=== PATIENT | female | born 1995 | race Caucasian/White ===

== ENCOUNTER 2020-12-15 17:35 | Outpatient (CLI) | payer MEDICAID ==
[~2020-12-15] VITALS: Ht 167.6 cm; Wt 108.1 kg
[2020-12-15 17:48] VITALS: BP 131/76
[2020-12-15] MEDS ORDERED: ONDANSETRON 2MG/ML, 2ML ONE (18:15)
[2020-12-15] MEDS ORDERED: LACTATED RINGERS 1,000 ML IVBOLUS ONE (18:30)
[2020-12-15] MEDS ORDERED: LACTATED RINGERS 1,000 ML IV SCH (18:30)
[2020-12-15] MEDS ORDERED: ONDANSETRON 2MG/ML, 2ML IVPush SCH (21:00)
== END 2020-12-15 20:08 | disposition home or self-care (01) ==
LOC: LDOP 17:35
PROVIDERS: ATTEND Obstetrics & Gynecology
DX: O26.893 Other specified pregnancy related conditions, third trimester (principal); R10.9 Unspecified abdominal pain; O62.9 Abnormality of forces of labor, unspecified; E86.0 Dehydration; Z3A.37 37 weeks gestation of pregnancy
CPT/HCPCS: 59025; 96361; 96374; J2405; J7120; 96360

== ENCOUNTER 2020-12-21 14:54 | Outpatient (CLI) | payer MEDICAID | END 2020-12-21 23:59 | disposition home or self-care (01) | LOC: STAR 14:54 | PROVIDERS: ATTEND Obstetrics & Gynecology | DX: Z20.822 Contact with and (suspected) exposure to COVID-19 (principal) | CPT/HCPCS: U0003 ==

== ENCOUNTER 2020-12-25 05:16 | Inpatient (IN) | payer MEDICAID ==
[~2020-12-25] VITALS: Ht 167.6 cm; Wt 110.0 kg
[2020-12-25] MEDS ORDERED: SODIUM CITRATE/CITRIC ACID 30 ML UDC PO ONE (05:30)
[2020-12-25] MEDS ORDERED: LACTATED RINGERS 1,000 ML IVBOLUS ONE (05:30)
[2020-12-25] MEDS ORDERED: METOCLOPRAMIDE 5 MG/ML, 2ML IV ONE (05:30)
[2020-12-25] MEDS ORDERED: ONDANSETRON 2MG/ML, 2ML IVPush ONE (05:30)
[2020-12-25] MEDS ORDERED: CEFAZOLIN PMX 1GM/50ML 50 ML IVPB ONE (05:30)
[2020-12-25] MEDS ORDERED: CALCIUM CARBONATE 500 MG TAB.CHEW PO PRN (05:30)
[2020-12-25 05:39] LABS: BASOPHILS % (AUTO) 1 % (0-1); EOSINOPHILS % (AUTO) 0 % (1-7); LYMPHOCYTES % (AUTO) 20 % (22-44); MEAN CORPUSCULAR HEMOGLOBIN 32.3 pg (27.0-34.8); MEAN CORPUSCULAR HGB CONC 34.8 g/dL (32.4-35.8); MEAN PLATELET VOLUME 8.1 fL (7.4-10.4); MONOCYTES % (AUTO) 7 % (2-9); NEUTROPHILS % (AUTO) 71 % (42-75); PLATELET COUNT 324 x10^3/uL (130-400); RED BLOOD COUNT 4.37 x10^6/uL (3.82-5.3); RED CELL DISTRIBUTION WIDTH 13.3 % (9.6-15.2)
[2020-12-25 05:42] LABS: MD NO
[2020-12-25] MEDS ORDERED: SODIUM CITRATE/CITRIC ACID 15 ML UDC ONE (05:55)
[2020-12-25] MEDS ORDERED: NEWBORN KIT ONE (05:55)
[2020-12-25] MEDS ORDERED: OXYTOCIN 30U/ 0.9% NaCL 500ML 500 ML ONE (05:55)
[2020-12-25] MEDS: LACTATED RINGERS 1,000 ML IV SCH ×7 (06:45→21:30)
[2020-12-25] MEDS ORDERED: KETOROLAC 30 MG/1 ML ONE (07:27)
[2020-12-25] MEDS ORDERED: CEFAZOLIN 1,000 MG ONE (07:27)
[2020-12-25] MEDS ORDERED: HYDROmorphone 2 MG/ML, 1ML ONE (07:27)
[2020-12-25] MEDS ORDERED: ONDANSETRON 2MG/ML, 2ML ONE (07:27)
[2020-12-25] MEDS ORDERED: FENTANYL PF 100 MCG/2ML ONE (07:27)
[2020-12-25] MEDS ORDERED: OXYTOCIN 10 UNITS/ML, 1ML ONE (07:27)
[2020-12-25] MEDS ORDERED: EPHEDRINE 50 MG/ML, 1ML ONE (07:47)
[2020-12-25] MEDS ORDERED: ONDANSETRON 2MG/ML, 2ML IV PRN (09:00)
[2020-12-25] MEDS ORDERED: MISOPROSTOL 200 MCG TABLET PR PRN (09:00)
[2020-12-25] MEDS ORDERED: MORPHINE SULFATE 4 MG/ML, 1ML IVPush PRN (09:00)
[2020-12-25] MEDS: PRENATAL VIT/IRON/FA 1 EACH TABLET PO SCH (09:00)
[2020-12-25] MEDS ORDERED: ACETAMINOPHEN 325 MG TABLET PO PRN (09:00)
[2020-12-25] MEDS: OXYTOCIN 30U/ 0.9% NaCL 500ML 500 ML IV SCH ×2 (09:31→19:00)
[2020-12-25 10:40] VITALS: BP 124/72
[2020-12-25] MEDS: OXYcodone IR 5MG TABLET PO PRN ×2 (13:38→21:55)
[2020-12-25] MEDS: SIMETHICONE 80 MG CHEW TAB PO PRN ×2 (13:38→21:54)
[2020-12-25] MEDS: KETOROLAC 30 MG/1 ML IV SCH ×2 (14:34→20:21)
[2020-12-25 16:00] VITALS: BP 105/66
[2020-12-25 19:57] VITALS: BP 115/71
[2020-12-25 20:12] LABS: BASOPHILS % (AUTO) 0 % (0-1); EOSINOPHILS % (AUTO) 0 % (1-7); LYMPHOCYTES % (AUTO) 11 % (22-44); MEAN CORPUSCULAR HEMOGLOBIN 31.9 pg (27.0-34.8); MEAN PLATELET VOLUME 8.4 fL (7.4-10.4); MONOCYTES % (AUTO) 6 % (2-9); NEUTROPHILS % (AUTO) 84 % (42-75); PLATELET COUNT 252 x10^3/uL (130-400); RED BLOOD COUNT 3.82 x10^6/uL (3.82-5.3); RED CELL DISTRIBUTION WIDTH 13.4 % (9.6-15.2)
[2020-12-25 20:14] LABS: MD NO
[2020-12-25] MEDS: DOCUSATE 100 MG CAPSULE PO PRN (21:55)
[2020-12-26] VITALS: BP 119/74
[2020-12-26] MEDS: LACTATED RINGERS 1,000 ML IV SCH ×3 (01:00→05:30)
[2020-12-26] MEDS: KETOROLAC 30 MG/1 ML IV SCH ×4 (02:18→20:48)
[2020-12-26] MEDS: OXYTOCIN 30U/ 0.9% NaCL 500ML 500 ML IV SCH (05:00)
[2020-12-26 07:45] VITALS: BP 106/69
[2020-12-26] MEDS: SIMETHICONE 80 MG CHEW TAB PO PRN (08:54)
[2020-12-26] MEDS: PRENATAL VIT/IRON/FA 1 EACH TABLET PO SCH (08:54)
[2020-12-26] MEDS: DOCUSATE 100 MG CAPSULE PO PRN (08:54)
[2020-12-26] MEDS ORDERED: MEASLES,MUMPS&RUBELLA VACC/PF 0.5 ML SQ-VACC ONE (19:30)
[2020-12-26] MEDS ORDERED: DIPH,PERTUSS(ACELL),TET VAC/PF NC IM-VACC ONE (19:30)
[2020-12-26 19:31] VITALS: BP 113/73
[2020-12-27] MEDS: OXYcodone/APAP 5/325MG TABLET PO PRN ×4 (01:04→21:31)
[2020-12-27] MEDS: KETOROLAC 30 MG/1 ML IV SCH (02:30)
[2020-12-27] MEDS: IBUPROFEN 600 MG TABLET PO PRN ×3 (05:15→18:24)
[2020-12-27] MEDS: PRENATAL VIT/IRON/FA 1 EACH TABLET PO SCH (09:00)
[2020-12-27 10:00] VITALS: BP 111/75
[2020-12-27] MEDS: SIMETHICONE 80 MG CHEW TAB PO PRN ×2 (11:01→18:24)
[2020-12-27] MEDS ORDERED: IBUPROFEN 600 MG TABLET PO PRN (16:00)
[2020-12-27 19:37] VITALS: BP_SYST 116; BP_SYST 119; BP_DIAS 76; BP_DIAS 79
[2020-12-27] MEDS: DOCUSATE 100 MG CAPSULE PO PRN (21:30)
[2020-12-28] MEDS: IBUPROFEN 600 MG TABLET PO PRN ×3 (01:36→14:01)
[2020-12-28] MEDS: OXYcodone/APAP 5/325MG TABLET PO PRN ×3 (01:37→12:41)
[2020-12-28 06:55] VITALS: BP 116/76
[2020-12-28] MEDS: SIMETHICONE 80 MG CHEW TAB PO PRN (07:51)
[2020-12-28] MEDS: DOCUSATE 100 MG CAPSULE PO PRN (07:51)
[2020-12-28] MEDS: PRENATAL VIT/IRON/FA 1 EACH TABLET PO SCH (07:54)
[2020-12-28] MEDS ORDERED: OXYC1TAB14 PO (13:04)
[2020-12-28] MEDS ORDERED: PREN1TAB60 PO (13:04)
[2020-12-28] MEDS ORDERED: IBUP-1222 PO (13:04)
== END 2020-12-28 14:30 | disposition home or self-care (01) | DRG 788 ==
LOC: LDIP 05:16 → 2NW 10:57
PROVIDERS: ADMIT Obstetrics & Gynecology; ATTEND Obstetrics & Gynecology
PROC: 10D00Z1 Extraction of Products of Conception, Low, Open Approach (ICD-10-PCS; principal; 2020-12-25)
DX: O32.1XX0 Maternal care for breech presentation, not applicable or unspecified (principal); Z37.0 Single live birth; Z3A.39 39 weeks gestation of pregnancy; Z23 Encounter for immunization
CPT/HCPCS: 36415; 85025; 86592; 86850; 86900; 90707; 90715; G0378; J0690; J1170; J1885; J2405; J3010; J2590; J2765; J7120